=== PATIENT | female | born 1975 | race Caucasian/White ===

== ENCOUNTER 2022-05-03 13:00 | Outpatient (CLI) | payer OTHER, SELFPAY | END 2022-05-03 13:01 | disposition home or self-care (01) | LOC: NFLDREF 05-11 12:01 | PROVIDERS: PCP Physician Assistant Medical; Referring Provider Physician Assistant Medical; Visit Provider Nurse Practitioner Family | DX: R30.0 Dysuria (principal); N89.8 Other specified noninflammatory disorders of vagina; N39.0 Urinary tract infection, site not specified | CPT/HCPCS: 87086; 87186 ==

== ENCOUNTER 2022-06-14 08:48 | Outpatient (CLI) | payer OTHER, SELFPAY | END 2022-06-14 08:49 | disposition home or self-care (01) | PROVIDERS: PCP Physician Assistant Medical; Visit Provider Physician Assistant Medical | DX: Z00.00 Encounter for general adult medical examination without abnormal findings (principal); R79.89 Other specified abnormal findings of blood chemistry; E66.9 Obesity, unspecified; N39.0 Urinary tract infection, site not specified; D64.9 Anemia, unspecified; I10 Essential (primary) hypertension; E11.9 Type 2 diabetes mellitus without complications; R80.9 Proteinuria, unspecified | CPT/HCPCS: 80053; 80061; 82043; 82570; 82607; 82746; 83516; 83540; 83550; 84443; 86703; 86803; 87086 ==

== ENCOUNTER 2023-01-10 15:28 | Outpatient (CLI) | payer OTHER, SELFPAY | END 2023-01-10 15:29 | disposition home or self-care (01) | PROVIDERS: PCP Physician Assistant Medical; Visit Provider Physician Assistant Medical | DX: E11.9 Type 2 diabetes mellitus without complications (principal); E78.5 Hyperlipidemia, unspecified; I10 Essential (primary) hypertension; E66.9 Obesity, unspecified | CPT/HCPCS: 80053; 82043; 82570 ==

== ENCOUNTER 2023-05-14 12:28 | Outpatient (CLI) | payer OTHER, SELFPAY | END 2023-05-14 12:29 | disposition home or self-care (01) | PROVIDERS: PCP Physician Assistant Medical; Visit Provider Physician Assistant Medical | DX: D64.9 Anemia, unspecified (principal); N92.0 Excessive and frequent menstruation with regular cycle | CPT/HCPCS: 83540; 83550 ==

== ENCOUNTER 2024-01-14 10:41 | Outpatient (CLI) | payer OTHER, SELFPAY | END 2024-01-14 10:42 | disposition home or self-care (01) | PROVIDERS: PCP Physician Assistant Medical; Visit Provider Physician Assistant Medical | DX: E78.5 Hyperlipidemia, unspecified (principal); I10 Essential (primary) hypertension; N92.6 Irregular menstruation, unspecified; R79.89 Other specified abnormal findings of blood chemistry; E11.9 Type 2 diabetes mellitus without complications | CPT/HCPCS: 80053; 80061; 82043; 82570; 82607; 83001; 84439; 84443 ==

== ENCOUNTER 2025-01-15 09:39 | Outpatient (CLI) | payer OTHER, SELFPAY | END 2025-01-15 09:40 | disposition home or self-care (01) | PROVIDERS: PCP Physician Assistant Medical; Visit Provider Physician Assistant Medical | DX: D64.9 Anemia, unspecified; E11.9 Type 2 diabetes mellitus without complications; E66.9 Obesity, unspecified; Z68.34 Body mass index [BMI] 34.0-34.9, adult; I10 Essential (primary) hypertension; Z78.0 Asymptomatic menopausal state; K13.70 Unspecified lesions of oral mucosa | CPT/HCPCS: 80053; 80061; 82043; 82306; 82570; 82607; 82728; 82746; 83001; 83540; 83550; 84443 ==